=== PATIENT | female | born 1970 | race Caucasian/White ===

== ENCOUNTER 2018-05-03 13:13 | Outpatient (CLI) | payer OTHER | END 2018-05-03 20:39 | disposition home or self-care (01) | LOC: SMA 13:13 | PROVIDERS: ATTEND Family Medicine | DX: Z12.31 Encounter for screening mammogram for malignant neoplasm of breast (principal) | CPT/HCPCS: 77067 ==

== ENCOUNTER → 2019-06-30 | Outpatient (CLI) | payer OTHER | END | disposition home or self-care (01) | LOC: SMA 09:59 | PROVIDERS: ATTEND Family Medicine | DX: Z12.31 Encounter for screening mammogram for malignant neoplasm of breast (principal); N64.89 Other specified disorders of breast | CPT/HCPCS: 77067 ==

== ENCOUNTER 2021-02-06 12:08 | Outpatient (CLI) | payer OTHER | END 2021-02-06 21:28 | disposition home or self-care (01) | LOC: SMA 12:08 | PROVIDERS: ATTEND Family Medicine | DX: Z12.31 Encounter for screening mammogram for malignant neoplasm of breast (principal) | CPT/HCPCS: 77067 ==